=== PATIENT | female | born 1935 | race Caucasian/White ===

== ENCOUNTER 2018-04-24 06:39 | Inpatient (IN) | payer MEDICARE ==
[~2018-04-24] VITALS: Ht 147.3 cm; Wt 82.0 kg
[2018-04-24] MEDS ORDERED: propofol 10mg/ml 20ml vial IV ONE (07:00)
[2018-04-24 07:05] LABS: BASOPHILS % (AUTO) 0.3 % (0-1); EOSINOPHILS # (AUTO) 0.6 X10'3 (0-0.9); EOSINOPHILS % (AUTO) 9.3 % (0-6); HEMATOCRIT 43.5 % (35.0-45.0); HEMOGLOBIN 15.1 g/dl (12.0-16.0); LYMPHOCYTES # (AUTO) 1.8 X10'3 (1.1-4.8); LYMPHOCYTES % (AUTO) 28.9 % (21-51); MEAN CORPUSCULAR HEMOGLOBIN 31.6 PG (27.0-31.0); MEAN CORPUSCULAR HGB CONC 34.7 % (33.0-36.5); MEAN CORPUSCULAR VOLUME 91.1 FL (78-98); MEAN PLATELET VOLUME 8.6 FL (7.4-10.4); MONOCYTES # (AUTO) 0.8 X10'3 (0-0.9); MONOCYTES % (AUTO) 12.3 % (2-12); NEUTROPHILS # (AUTO) 3.1 X10'3 (1.8-7.7); NEUTROPHILS % (AUTO) 49.2 % (42-75); PLATELET COUNT 211 X10'3 (140-440); RED BLOOD COUNT 4.78 X10'6 (4.20-5.60); RED CELL DISTRIBUTION WIDTH 13.9 % (11.5-14.5); WHITE BLOOD COUNT 6.2 X10'3 (4.5-11.0)
[2018-04-24 07:14] LABS: PARTIAL THROMBOPLASTIN TIME 28 SECONDS (22-32); PROTHROMBIN TIME 10.5 SECONDS (9.0-12.0)
[2018-04-24 07:19] LABS: ALANINE AMINOTRANSFERASE 30 U/L (12-78); ALBUMIN 3.9 G/DL (3.4-5.0); ALKALINE PHOSPHATASE 61 IU/L (46-116); ANION GAP 12 (8-16); ASPARTATE AMINO TRANSFERASE 25 U/L (10-37); BILIRUBIN,TOTAL 0.6 MG/DL (0.1-1.0); BLOOD UREA NITROGEN 15 MG/DL (7-18); BUN/CREATININE RATIO 14.4 (6.6-38.0); CALCIUM 10.1 MG/DL (8.5-10.1); CHLORIDE 104 MMOL/L (99-107); CREATININE 1.04 MG/DL (0.40-0.90); GLUCOSE 104 MG/DL (70-104); MAGNESIUM 1.7 MG/DL (1.5-2.4); SODIUM 140 MMOL/L (135-145); TOTAL PROTEIN 7.9 G/DL (6.4-8.2); eGFR 51 ML/MIN
[2018-04-24] MEDS ORDERED: LISI1TAB11 PO (07:40)
[2018-04-24] MEDS ORDERED: aspirin 81mg tab.chew PO ONE (07:40)
[2018-04-24] MEDS ORDERED: potassium Cl 20 mEq SR tablet PO PRN ×2 (08:20)
[2018-04-24] MEDS ORDERED: normal saline 1000ml 1,000 ML IV SCH (08:20)
[2018-04-24] MEDS ORDERED: mag hydrox/Alum hydrox/simeth 30ml oral suspension PO PRN (08:20)
[2018-04-24] MEDS ORDERED: magnesium 4gm in 100ml NS 100 ML IV PRN (08:20)
[2018-04-24] MEDS ORDERED: potassium Cl 40MEQ/NS 500ml 500 ML IV PRN ×2 (08:20)
[2018-04-24] MEDS ORDERED: ondansetron/PF 4mg/2ml inj IV PRN (08:20)
[2018-04-24] MEDS ORDERED: magnesium hydroxide 30ml (MOM) UD suspension PO PRN (08:20)
[2018-04-24] MEDS ORDERED: magnesium Cl slow-release 64mg tablet PO PRN (08:20)
[2018-04-24] MEDS ORDERED: acetaminophen 325mg tablet PO PRN ×2 (08:20)
[2018-04-24] MEDS ORDERED: magnesium/D5W IVPB 50 ML IV PRN (08:20)
[2018-04-24 08:44] LABS: CLARITY,URINE Clear (Clear); COLOR,URINE Yellow (Yellow); GLUCOSE, URINE Negative (Neg); KETONES,URINE Negative (Neg); LEUKOCYTE ESTERASE ,URINE Negative (Neg); NITRITES, URINE Negative (Neg); OCCULT BLOOD,URINE Negative (Neg); PH,URINE 7.5 (4.8-8.0); PROTEIN,URINE Negative (Neg); UROBILINOGEN,URINE 0.2 E.U/dL (0.2-1.0)
[2018-04-24 09:04] LABS: UA COLLECTION TYPE VOIDED
[2018-04-24] MEDS: sotalol 80mg tablet PO SCH ×2 (09:52→21:00)
[2018-04-24 13:01] VITALS: BP 136/79
[2018-04-24 15:48] VITALS: BP 137/68
[2018-04-24 19:00] VITALS: BP 138/87
[2018-04-24 23:00] VITALS: BP 121/70
[2018-04-25 03:00] VITALS: BP 130/64
[2018-04-25 05:48] LABS: BASOPHILS % (AUTO) 0.2 % (0-1); EOSINOPHILS # (AUTO) 0.7 X10'3 (0-0.9); EOSINOPHILS % (AUTO) 12.5 % (0-6); HEMATOCRIT 38.6 % (35.0-45.0); HEMOGLOBIN 13.5 g/dl (12.0-16.0); LYMPHOCYTES # (AUTO) 2.1 X10'3 (1.1-4.8); LYMPHOCYTES % (AUTO) 35.7 % (21-51); MEAN CORPUSCULAR HGB CONC 34.9 % (33.0-36.5); MEAN CORPUSCULAR VOLUME 91.6 FL (78-98); MEAN PLATELET VOLUME 9.3 FL (7.4-10.4); MONOCYTES # (AUTO) 0.8 X10'3 (0-0.9); MONOCYTES % (AUTO) 13.1 % (2-12); NEUTROPHILS # (AUTO) 2.3 X10'3 (1.8-7.7); NEUTROPHILS % (AUTO) 38.5 % (42-75); PLATELET COUNT 194 X10'3 (140-440); RED BLOOD COUNT 4.21 X10'6 (4.20-5.60); RED CELL DISTRIBUTION WIDTH 13.8 % (11.5-14.5); WHITE BLOOD COUNT 5.9 X10'3 (4.5-11.0)
[2018-04-25 05:49] LABS: ALBUMIN 3.1 G/DL (3.4-5.0); ANION GAP 6 (8-16); BLOOD UREA NITROGEN 17 MG/DL (7-18); BUN/CREATININE RATIO 16.3 (6.6-38.0); CALCIUM 9.2 MG/DL (8.5-10.1); CHLORIDE 105 MMOL/L (99-107); CREATININE 1.04 MG/DL (0.40-0.90); GLUCOSE 98 MG/DL (70-104); MAGNESIUM 1.6 MG/DL (1.5-2.4); SODIUM 139 MMOL/L (135-145); TOTAL CARBON DIOXIDE 28.4 MMOL/L (24-32); eGFR 51 ML/MIN
[2018-04-25 05:51] LABS: POTASSIUM 4.5 MMOL/L (3.5-5.1)
[2018-04-25] MEDS ORDERED: lisinopril 20mg tablet PO SCH (08:00)
[2018-04-25] MEDS ORDERED: K and/or MAG REPLACEMENT MC SCH (08:00)
[2018-04-25] MEDS ORDERED: HYDROchlorothiazide 12.5mg capsule PO SCH (08:00)
[2018-04-25] MEDS ORDERED: enoxaparin 30mg/0.3ml syringe SUBCUT SCH (08:00)
[2018-04-25] MEDS: sotalol 80mg tablet PO SCH (08:18)
[2018-04-25] MEDS ORDERED: SOTA80TA73 PO (11:54)
== END 2018-04-25 12:25 | disposition home or self-care (01) | DRG 310 ==
LOC: ER 06:40 → ED HOLD 08:20 → PCU 3S 11:32
PROVIDERS: ADMIT Internal Medicine; ATTEND Internal Medicine
DX: I48.91 Unspecified atrial fibrillation (principal); I44.7 Left bundle-branch block, unspecified; I10 Essential (primary) hypertension; Z90.710 Acquired absence of both cervix and uterus; Z79.899 Other long term (current) drug therapy; Z88.1 Allergy status to other antibiotic agents; Z79.82 Long term (current) use of aspirin; Z85.3 Personal history of malignant neoplasm of breast; Z92.3 Personal history of irradiation
CPT/HCPCS: 36415; 71045; 80048; 80053; 81003; 83735; 84484; 85025; 85610; 85730; 87070; 93005; 93306; 99285; J1650; J7030

== ENCOUNTER 2021-06-23 20:29 | Emergency (ER) | payer MEDICARE ==
[~2021-06-23] VITALS: Ht 149.9 cm; Wt 81.8 kg
[~2021-06-23 20:29] MED LIST: LISI1TAB51 PO; SOTA80TA73 PO
--- NOTE | 2021-06-23 20:43 | NUR ---
EKG 1530
[2021-06-23 21:15] VITALS: BP 166/85
[2021-06-23 21:22] LABS: BASOPHILS % (AUTO) 0.1 % (0-1); EOSINOPHILS # (AUTO) 0.2 X10'3 (0-0.9); EOSINOPHILS % (AUTO) 2.5 % (0-6); HEMATOCRIT 38.5 % (35.0-45.0); HEMOGLOBIN 12.9 g/dl (12.0-16.0); LYMPHOCYTES % (AUTO) 32.4 % (21-51); MEAN CORPUSCULAR HEMOGLOBIN 31.2 PG (27.0-31.0); MEAN CORPUSCULAR HGB CONC 33.6 g/dL (33.0-36.5); MEAN CORPUSCULAR VOLUME 93.1 FL (78-98); MEAN PLATELET VOLUME 7.5 FL (7.4-10.4); MONOCYTES # (AUTO) 0.9 X10'3 (0-0.9); MONOCYTES % (AUTO) 14.5 % (2-12); NEUTROPHILS # (AUTO) 3.1 X10'3 (1.8-7.7); NEUTROPHILS % (AUTO) 50.5 % (42-75); PLATELET COUNT 277 X10'3 (140-440); RED BLOOD COUNT 4.14 X10'6 (4.20-5.60); RED CELL DISTRIBUTION WIDTH 13.7 % (11.5-14.5); WHITE BLOOD COUNT 6.1 X10'3 (4.5-11.0)
[2021-06-23 21:37] LABS: ALANINE AMINOTRANSFERASE 28 U/L (12-78); ALBUMIN 3.6 G/DL (3.4-5.0); ALBUMIN/GLOBULIN RATIO 0.9 (1.1-1.5); ALKALINE PHOSPHATASE 60 IU/L (46-116); ANION GAP 10 (8-16); ASPARTATE AMINO TRANSFERASE 26 U/L (10-37); BILIRUBIN,TOTAL 0.6 MG/DL (0.1-1.0); BLOOD UREA NITROGEN 15 MG/DL (7-18); BUN/CREATININE RATIO 17.9 (6.6-38.0); CALCIUM 9.7 MG/DL (8.5-10.1); CHLORIDE 94 MMOL/L (99-107); CREATININE 0.84 MG/DL (0.40-0.90); GLUCOSE 96 MG/DL (70-104); POTASSIUM 4.2 MMOL/L (3.5-5.1); SODIUM 130 MMOL/L (135-145); TOTAL CARBON DIOXIDE 25.9 MMOL/L (24-32); TOTAL PROTEIN 7.4 G/DL (6.4-8.2); eGFR 65 ML/MIN
[2021-06-23 21:45] LABS: TROPONIN I < 0.04 NG/ML (0.0-0.05)
== END 2021-06-24 01:08 | disposition home or self-care (01) ==
LOC: ER 20:31
DX: R60.0 Localized edema (principal); R06.02 Shortness of breath; R53.1 Weakness; I48.91 Unspecified atrial fibrillation; I10 Essential (primary) hypertension; Z88.1 Allergy status to other antibiotic agents; Z79.899 Other long term (current) drug therapy
CPT/HCPCS: 36415; 71045; 80053; 83880; 84484; 85025; 93005; 99285

== ENCOUNTER 2021-09-24 17:18 | Inpatient (IN) | payer MEDICARE ==
[~2021-09-24] VITALS: Ht 157.5 cm; Wt 90.4 kg
[2021-09-24] MEDS ORDERED: famotidine/PF 10 mg/ml inj IV ONE (17:25)
[2021-09-24] MEDS ORDERED: diphenhydrAMINE 50 mg/ml inj IV ONE (17:25)
[2021-09-24] MEDS ORDERED: dexamethasone sod phosphate 10mg/ml inj IV STA (17:25)
[2021-09-24] MEDS ORDERED: epiNEPHrine 1 mg/ml inj SQ PRN (17:30)
[2021-09-24] MEDS ORDERED: tranexamic acid 1gm/0.7% sal. 100 ML IV ONE (17:30)
[2021-09-24] MEDS ORDERED: normal saline 1000ml 1,000 ML IV ONE (21:05)
[2021-09-24] MEDS ORDERED: ondansetron/PF 4mg/2ml inj IV PRN (21:25)
[2021-09-24] MEDS ORDERED: magnesium hydroxide 30ml (MOM) UD suspension PO PRN (21:25)
[2021-09-24] MEDS ORDERED: acetaminophen 325mg tablet PO PRN (21:25)
--- NOTE | 2021-09-24 23:14 | NUR ---
pt slippped out of bed. called for help. two animal care technician assisted pt back to bed. she was found face foward on her knees. no additonal pain noted or bruising to note
[2021-09-24 23:45] VITALS: BP 152/75
[2021-09-25] VITALS (17 sets, daily range): BP systolic 102–152; BP diastolic 49–89
[2021-09-25] MEDS: methylPREDNISolone sod succ/PF 40mg inj. IV SCH ×2 (00:14→08:36)
[2021-09-25 00:47] LABS: BASOPHILS % (AUTO) 0 % (0-1); EOSINOPHILS % (AUTO) 0 % (0-6); HEMATOCRIT 35.8 % (35.0-45.0); HEMOGLOBIN 12.7 g/dl (12.0-16.0); LYMPHOCYTES # (AUTO) 0.7 X10'3 (1.1-4.8); LYMPHOCYTES % (AUTO) 13.3 % (21-51); MEAN CORPUSCULAR HEMOGLOBIN 31.7 PG (27.0-31.0); MEAN CORPUSCULAR HGB CONC 35.4 g/dL (33.0-36.5); MEAN CORPUSCULAR VOLUME 89.6 FL (78-98); MEAN PLATELET VOLUME 7.3 FL (7.4-10.4); MONOCYTES # (AUTO) 0.1 X10'3 (0-0.9); MONOCYTES % (AUTO) 1.8 % (2-12); NEUTROPHILS # (AUTO) 4.4 X10'3 (1.8-7.7); NEUTROPHILS % (AUTO) 84.9 % (42-75); PLATELET COUNT 275 X10'3 (140-440); RED BLOOD COUNT 3.99 X10'6 (4.20-5.60); WHITE BLOOD COUNT 5.2 X10'3 (4.5-11.0)
[2021-09-25 00:54] LABS: ALBUMIN 3.6 G/DL (3.4-5.0); ANION GAP 9 (8-16); BLOOD UREA NITROGEN 19 MG/DL (7-18); BUN/CREATININE RATIO 22.9 (6.6-38.0); CALCIUM 8.6 MG/DL (8.5-10.1); CHLORIDE 91 MMOL/L (99-107); CREATININE 0.83 MG/DL (0.40-0.90); GLUCOSE 125 MG/DL (70-104); POTASSIUM 4.3 MMOL/L (3.5-5.1); SODIUM 125 MMOL/L (135-145); eGFR 65 ML/MIN
[2021-09-25] MEDS ORDERED: CARSR60C PO ×2 (00:59→01:01)
[2021-09-25] MEDS ORDERED: FURO20TA4 PO (01:06)
[2021-09-25] MEDS ORDERED: DILT-36 PO (01:06)
[2021-09-25] MEDS ORDERED: FLEC50TA3 PO (01:06)
--- NOTE | 2021-09-25 06:30 | NUR ---
Patient in room PCU 3014. I have received report from Kurtis HOLLIDAY and had the opportunity to ask questions and assume patient care. pt two person assisted to BSC. pt alert without sob. no s/sx acute distress.
[2021-09-25] MEDS: famotidine/PF 10 mg/ml inj IV SCH ×2 (08:36→20:05)
[2021-09-25] MEDS: aspirin 81mg, enteric-coated 1 TAB TABLET.DR PO SCH (10:23)
[2021-09-25] MEDS: furosemide 20MG tablet PO SCH (10:23)
[2021-09-25] MEDS: flecainide 50mg tablet PO SCH ×2 (10:23→20:05)
[2021-09-25] MEDS ORDERED: ondansetron 4mg rapidly disintigrating tab PO PRN (10:45)
--- NOTE | 2021-09-25 12:25 | NUR ---
Pt transferred to U 3014B. This nurse continued care. pt acclimated to new environment. safety education provided. pt assisted to BSC and given lunch. no s/sx acute distress
[2021-09-25] MEDS: acetaminophen 325mg tablet PO PRN (16:27)
--- NOTE | 2021-09-25 18:23 | NUR ---
Problems reprioritized. Patient report given, questions answered & plan of care reviewed with Nina HOLLIDAY. Pt sitting up in chair by window, eagerly watching the [employer] parade.
[2021-09-25] MEDS: enoxaparin 40mg/0.4ml syringe SUBCUT SCH (20:06)
[2021-09-25] MEDS ORDERED: diltiazem CD 180mg cap (once-daily) PO SCH (21:00)
[2021-09-26 02:00] VITALS: BP 126/72
[2021-09-26 06:00] VITALS: BP 120/44
[2021-09-26 06:46] LABS: BASOPHILS % (AUTO) 0.1 % (0-1); EOSINOPHILS % (AUTO) 0.1 % (0-6); HEMATOCRIT 36.9 % (35.0-45.0); LYMPHOCYTES # (AUTO) 1.5 X10'3 (1.1-4.8); LYMPHOCYTES % (AUTO) 14.3 % (21-51); MEAN CORPUSCULAR HEMOGLOBIN 32.1 PG (27.0-31.0); MEAN CORPUSCULAR HGB CONC 35.2 g/dL (33.0-36.5); MEAN CORPUSCULAR VOLUME 91.3 FL (78-98); MEAN PLATELET VOLUME 7.6 FL (7.4-10.4); MONOCYTES # (AUTO) 1.4 X10'3 (0-0.9); MONOCYTES % (AUTO) 13.1 % (2-12); NEUTROPHILS # (AUTO) 7.5 X10'3 (1.8-7.7); NEUTROPHILS % (AUTO) 72.4 % (42-75); PLATELET COUNT 291 X10'3 (140-440); RED BLOOD COUNT 4.04 X10'6 (4.20-5.60); RED CELL DISTRIBUTION WIDTH 14.3 % (11.5-14.5); WHITE BLOOD COUNT 10.3 X10'3 (4.5-11.0)
[2021-09-26 06:53] LABS: ALBUMIN 3.4 G/DL (3.4-5.0); ANION GAP 10 (8-16); BLOOD UREA NITROGEN 27 MG/DL (7-18); BUN/CREATININE RATIO 29.7 (6.6-38.0); CALCIUM 8.5 MG/DL (8.5-10.1); CHLORIDE 97 MMOL/L (99-107); CREATININE 0.91 MG/DL (0.40-0.90); GLUCOSE 101 MG/DL (70-104); SODIUM 133 MMOL/L (135-145); TOTAL CARBON DIOXIDE 25.8 MMOL/L (24-32); eGFR 59 ML/MIN
[2021-09-26] MEDS: famotidine/PF 10 mg/ml inj IV SCH (08:11)
[2021-09-26] MEDS: aspirin 81mg, enteric-coated 1 TAB TABLET.DR PO SCH (08:14)
[2021-09-26] MEDS: flecainide 50mg tablet PO SCH (08:15)
[2021-09-26] MEDS: furosemide 20MG tablet PO SCH (08:15)
[2021-09-26] MEDS: enoxaparin 40mg/0.4ml syringe SUBCUT SCH (08:16)
[2021-09-26] MEDS: acetaminophen 325mg tablet PO PRN (08:23)
[2021-09-26] MEDS ORDERED: ASPI-1071 PO (10:59)
[2021-09-26 11:00] VITALS: BP 95/48
--- NOTE | 2021-09-26 12:10 | NUR ---
pt discharged home with son. Resource RN Faviola finished discharge w/ iv removal and tele dc, getting patient dressed and belongings collected and sent down in wheelchair w/ staff to [facility]. No new perscription meds. Pt states understanding of all discharge instruction and follow up with pcp. Dr Bolton called after putting discharge in to check on patients progress and was agreeable to patient going home if wanting or waiting till later in the evening when he rounds if desired. Pt felt comfortable discharging with son at earlier time. Patient appropriate for discharge.
== END 2021-09-26 12:10 | disposition home or self-care (01) | DRG 915 ==
LOC: ER 17:19 → ED HOLD 21:29 → ICU 2S 23:00 → PCU 3S 09-25 12:29
PROVIDERS: ADMIT Internal Medicine; ATTEND Internal Medicine
DX: T78.3XXA Angioneurotic edema, initial encounter (principal); J96.00 Acute respiratory failure, unspecified whether with hypoxia or hypercapnia; E87.1 Hypo-osmolality and hyponatremia; I10 Essential (primary) hypertension; T50.Z95A Adverse effect of other vaccines and biological substances, initial encounter; Z20.822 Contact with and (suspected) exposure to COVID-19; I48.91 Unspecified atrial fibrillation; Z79.82 Long term (current) use of aspirin; Z79.899 Other long term (current) drug therapy; Z88.8 Allergy status to other drugs, medicaments and biological substances; Y92.89 Other specified places as the place of occurrence of the external cause
CPT/HCPCS: 36415; 80048; 84132; 85025; 87081; 87635; 96372; 96374; 96375; 97116; 97161; 97530; 99285; G0378; J0171; J1100; J1200; J1650; J2920; J3490; J7030